=== PATIENT | female | born 1950 | race Caucasian/White ===

== ENCOUNTER 2022-06-29 09:54 | Outpatient (CLI) | payer MEDICARE, SELFPAY ==
--- NOTE | ~2022-06-29 | MM_ITS ---
EXAMINATION: MM screening harman BI w dima HISTORY: Screening mammogram TECHNIQUE: Craniocaudal and mediolateral oblique 3-D tomosynthesis images were obtained and synthetic 2-D images were generated. CAD analysis was submitted and interpreted. COMPARISON: No prior mammogram is available for comparison at this institution. BREAST PARENCHYMAL COMPOSITION: There are scattered areas of fibroglandular density. FINDINGS: There is no evidence of suspicious mass, calcification, or architectural distortion to sugg est malignancy in either breast. There has been no suspicious interval change. IMPRESSION: 1. No mammographic evidence of malignancy. 2. Recommend routine screening mammography in one year. BI-RADS Category 1: Negative Reviewed, dictated and finalized at location A. [facility]
== END 2022-06-29 09:55 | disposition home or self-care (01) ==
LOC: ANHIMG 09:56
PROVIDERS: PCP Family Medicine; Visit Provider Family Medicine
DX: Z12.31 Encounter for screening mammogram for malignant neoplasm of breast (principal)
CPT/HCPCS: 77063; 77067

== ENCOUNTER 2022-09-15 08:27 | Outpatient (CLI) | payer MEDICARE, SELFPAY ==
--- NOTE | ~2022-09-15 | US_ITS ---
Limited Abdominal Sonogram: Real-time sonographic imaging of the right upper quadrant was performed. Clinical History: Gallbladder disease Findings: The liver appears echogenic, with no evidence of mass lesion or bile duct dilatation. Main portal vein demonstrates normal direction of flow. The gallbladder is well distended, and appears no rmal with no evidence of gallstone or wall thickening. The common bile duct measures 3 mm. The visua lized pancreas, aorta, and IVC are unremarkable. Impression: Diffuse fatty infiltration of the liver. Reviewed, dictated and finalized at location M. Impression: Diffuse fatty infiltration of the liver.
== END 2022-09-15 08:28 | disposition home or self-care (01) ==
LOC: ANHIMG 08:29
PROVIDERS: PCP Family Medicine; Visit Provider Family Medicine
DX: K82.9 Disease of gallbladder, unspecified (principal); R10.11 Right upper quadrant pain; K76.0 Fatty (change of) liver, not elsewhere classified
CPT/HCPCS: 76705

== ENCOUNTER 2022-11-02 07:51 | Outpatient (CLI) | payer MEDICARE, SELFPAY ==
--- NOTE | ~2022-11-02 | DEXA_ITS ---
Bone Density Report Name: DANIAL FLOREZ Age: 72 Sex: Female Ethnicity: White Date of : 1950 Indication: postmenopausal; screening for osteoporosis; Referring Provider: CORETTA BROWNING Study: Bone densitometry was performed. Exam Date: November 02, 2022 Accession number: [id number] Bone Density: Region BMD T-score Z-score Classification AP Spine(L1-L4) 0.869 -1.6 0.5 Osteopenia Femoral Neck (Left) 0.583 -2.4 -0.6 Osteopenia Total Hip (Left) 0.717 -1.8 -0.3 Osteopenia Femoral Neck (Right) 0.585 -2.4 -0.5 Osteopenia Total Hip (Right) 0.735 -1.7 -0.2 Osteopenia Total Hip Mean 0.726 -1.8 -0.3 Osteopenia World Health Organization criteria for BMD impression classify patients as: Normal (T-score at or above -1.0), Osteopenia (T-score between -1.0 and -2.5), or Osteoporosis (T-score at or below -2.5). 10-year Fracture Risk(1): Major Osteoporotic Fracture 14% Hip Fracture 3.2% Reported Risk Factors: [place] (), Neck BMD=0.583, BMI=29.2 (1) FRAX(R) Version 3.08. Fracture probability calculated for an untreated patient. Fracture probability may be lower if the patient has received treatment. Clinical Information Provided by Patient: Has used the following medications: Vitamin D Patient maximum height was 66 Menopause Age: 52 No regular weight bearing exercise Drinks caffeinated beverages Onset of menses at age 15 Number of children 2 Impression: The patient has low bone mass, based on the Left Femoral Neck T-score. The patient has an estimated ten-year risk of hip fracture of 3.2% and an estimated ten-year risk of major fracture of 14%, based on the WHO FRAX algorithm. Discussion: BONE DENSITY IS LOW AT ONE OR MORE SKELETAL SITES. THE PATIENT'S BMD AND CLINICAL RISK FACTORS CONTRIBUTE TO THIS PATIENT'S INCREASED RISK OF FRACTURE. This patient's lowest T-score is low at one or more skeletal sites. It meets the World Health Organization's (WHO) criteria for ?low bone mass? (T-score between -1.0 and -2.5). The patient's 10-year risk of hip fracture as calculated by FRAX exceeds the threshold where pharmacological therapy is recommended by the National Osteoporosis Foundation (NOF). However, all treatment decisions require clinical judgment and consideration of individual patient factors, including patient preferences, comorbidities, previous drug use, risk factors not captured in the FRAX model (e.g., frailty, falls, vitamin D deficiency, increased bone turnover, interval significant decline in bone density) and possible under or overestimation of fracture risk by FRAX. The patient should follow a healthful lifestyle (good nutrition with adequate calcium and vitamin D, and appropriate weight-bearing exercise). Follow-Up: Consider a repeat BMD and Vertebral Fracture Assessm
--- NOTE | ~2022-11-02 | DEXA_ITS ---
Bone Density Report Name: DANILA FLOREZ Age: 72 Sex: Female Ethnicity: White Date of : 1950 Indication: postmenopausal; screening for osteoporosis; Referring Provider: CORETTA BROWNING Study: Bone densitometry was performed. Exam Date: November 02, 2022 Accession number: [id number] Bone Density: Region BMD T-score Z-score Classification Total Forearm (Left) 0.386 -3.6 -1.5 1/3 Forearm (Left) 0.506 -3.1 -1.0 UD Forearm (Left) 0.288 -2.7 -1.1 World Health Organization criteria for BMD impression classify patients as: Normal (T-score at or above -1.0), Osteopenia (T-score between -1.0 and -2.5), or Osteoporosis (T-score at or below -2.5). Clinical Information Provided by Patient: Has used the following medications: Vitamin D Patient maximum height was 66 Menopause Age: 52 No regular weight bearing exercise Drinks caffeinated beverages Onset of menses at age 15 Number of children 2 Impression: The patient has osteoporosis, based on the Left Third Radius T-score. Discussion: INCREASED RISK OF FRACTURE. BONE DENSITY IS UNDESIRABLY LOW AT ONE OR MORE SKELETAL SITES, CONSISTENT WITH POSTMENOPAUSAL OSTEOPOROSIS. This patient's lowest T-score meets the World Health Organization's (WHO) criteria for osteoporosis at one or more sites (T-score -2.5 or below). In untreated patients, the risk of osteoporotic fracture increases approximately two-fold for each 1.0 SD decrease in T-score. Low bone density is not the only risk factor for fracture; also consider factors such as patient's age, frailty or poor health, risk of falling, risk of injury, previous osteoporotic fracture, family history of osteoporosis, cigarette smoking, low body weight, etc. Not everyone with low bone mineral density has osteoporosis; osteomalacia and other metabolic bone disorders should also be considered. Patients who have osteoporosis should be evaluated for specific diseases and conditions (secondary causes) that may cause or contribute to bone loss. The [place] Association of Clinical Endocrinologists (AACE) and National Osteoporosis Foundation (NOF) recommend pharmacologic intervention for all postmenopausal women whose T-score is in this range. The patient should follow a healthful lifestyle (good nutrition with adequate calcium and vitamin D, and appropriate weight-bearing exercise). Follow-Up: Consider a repeat BMD and Vertebral Fracture Assessment (VFA) exam in 2 years or sooner if medically necessary, to reassess this patient's status. Reported by: [facility] on 11/02/2022 8:22:00 AM. Reviewed, dictated and finalized at location A. [facility]
== END 2022-11-02 07:52 | disposition home or self-care (01) ==
LOC: ANHIMG 07:52
PROVIDERS: PCP Family Medicine; Visit Provider Internal Medicine
DX: M81.0 Age-related osteoporosis without current pathological fracture (principal); M85.88 Other specified disorders of bone density and structure, other site; M85.852 Other specified disorders of bone density and structure, left thigh; M85.851 Other specified disorders of bone density and structure, right thigh
CPT/HCPCS: 36415; 77080; 77081; 80053; 82784; 83883; 84155; 84165; 85025

== ENCOUNTER 2022-11-02 10:50 | Outpatient (CLI) | payer MEDICARE, SELFPAY ==
[2022-11-02 11:04] LABS: Basophils Percent Auto 0.4 % (0.2-1.2); Eosinophils Absolute Auto 0.1 K/mm3 (0-0.3); Eosinophils Percent Auto 1.8 % (0-4.4); Hemoglobin 15.2 g/dL (12.0-15.0); Immature Granulocyte Absolute 0.02 K/mm3 (0.00-0.031); Immature Granulocyte Percent A 0.3 % (0-0.5); Lymphocytes Percent Auto 34.6 % (18.3-44.2); Mean Corpuscular Hemoglobin 30.6 pg (26-34); Mean Corpuscular Volume 92.7 fl (80-100); Mean Platelet Volume 10.3 fl (7.4-10.4); Monocytes Absolute Auto 0.8 K/mm3 (0.1-0.6); Monocytes Percent Auto 10.7 % (2.6-8.5); Neutrophils Absolute Auto 3.8 K/mm3 (1.3-6.7); Neutrophils Percent Auto 52.2 % (45.5-73.1); Platelet Count Result 239 k/mm3 (150-375); Red Blood Count 4.96 M/mm3 (4.2-5.4); Red Cell Distribution Width 13.1 % (11.5-14.5); White Blood Count 7.2 K/mm3 (4.5-10.0)
[2022-11-02 16:42] LABS: Alanine Aminotransferase 39 U/L (6-35); Albumin Level 4.9 g/dL (3.5-5.1); Alkaline Phosphatase 72 U/L (38-126); Anion Gap 6 mmol/L (8-16); Aspartate Amino Transferase 32 U/L (14-36); Bilirubin,Total 0.5 mg/dL (0.2-1.3); Blood Urea Nitrogen 14 mg/dL (7-17); Calcium 9.9 mg/dL (8.4-10.2); Carbon Dioxide 30 mmol/L (22-30); Chloride 105 mmol/L (98-107); Estimated Glomerular Filt Rate > 60; Glucose 120 mg/dL (65-110); Potassium 4.1 mmol/L (3.4-5.0); Sodium 141 mmol/L (137-145)
[2022-11-02 16:49] LABS: Immunoglobulin A 271 mg/dL (70-400); Immunoglobulin G 934 mg/dL (700-1600); Immunoglobulin M 75 mg/dL (40-230)
[2022-11-06 11:26] LABS: Kappa\\Lambda Light Chains 1.69 (0.26-1.65); Lambda Light Chain 17.9 mg/L (5.7-26.3)
[2022-11-06 16:36] LABS: Abnormal Protein Band 1 0.3 g/dL; Albumin 4.3 g/dL (3.8-4.8); Alpha 1 Globulin 0.3 g/dL (0.2-0.3); Alpha 2 Globulin 0.9 g/dL (0.5-0.9); Beta 1 Globulin 0.6 g/dL (0.4-0.6); Gamma Globulin 1.1 g/dL (0.8-1.7); Protein, Total 7.5 g/dL (6.1-8.1)
== END 2022-11-02 10:51 | disposition home or self-care (01) ==
LOC: ANHLAB 10:52
PROVIDERS: PCP Family Medicine; Visit Provider Internal Medicine Hematology & Oncology
DX: D72.9 Disorder of white blood cells, unspecified (principal)
CPT/HCPCS: 36415; 80053; 82784; 83883; 84155; 84165; 85025

== ENCOUNTER 2023-04-26 08:21 | Outpatient (CLI) | payer MEDICARE, SELFPAY ==
--- NOTE | ~2023-04-26 | NM_ITS ---
EXAMINATION: NM parathyroid imaging w spect DATE: 04/26/2023 12:30 INDICATION: High urine calcium TECHNIQUE: 20.9 mCi Tc99m tetrofosmin (Myoview) was administered by intravenous route. Anterior image s of the neck were obtained at 10 minutes and 3 hours. 3 hour delayed SPECT images were also obtained and reconstructed in axial, sagittal and coronal planes. COMPARISON: None. FINDINGS/IMPRESSION: There is no focus of persistent activity in the area of the thyroid or mediastinum to suggest parathy roid adenoma. Reviewed, dictated and finalized at location A.
== END 2023-04-26 08:22 | disposition home or self-care (01) ==
LOC: ANHIMG 08:23
PROVIDERS: PCP Family Medicine; Visit Provider Internal Medicine
DX: E21.3 Hyperparathyroidism, unspecified (principal)
CPT/HCPCS: 78071; A9500

== ENCOUNTER 2023-05-18 11:18 | Outpatient (CLI) | payer MEDICARE, SELFPAY ==
[2023-05-18 11:48] LABS: Basophils Percent Auto 0.3 % (0.2-1.2); Eosinophils Absolute Auto 0.1 K/mm3 (0-0.3); Eosinophils Percent Auto 1.3 % (0-4.4); Hematocrit 42.9 % (37.0-47.0); Hemoglobin 14.1 g/dL (12.0-15.0); Immature Granulocyte Absolute 0.02 K/mm3 (0.00-0.031); Immature Granulocyte Percent A 0.3 % (0-0.5); Lymphocytes Percent Auto 37.5 % (18.3-44.2); Mean Corpuscular HGB Conc 32.9 g/dl (32-36); Mean Corpuscular Hemoglobin 30.7 pg (26-34); Mean Corpuscular Volume 93.5 fl (80-100); Mean Platelet Volume 9.5 fl (7.4-10.4); Monocytes Absolute Auto 0.8 K/mm3 (0.1-0.6); Monocytes Percent Auto 9.7 % (2.6-8.5); Neutrophils Absolute Auto 3.9 K/mm3 (1.3-6.7); Neutrophils Percent Auto 50.9 % (45.5-73.1); Platelet Count Result 210 k/mm3 (150-375); Red Blood Count 4.59 M/mm3 (4.2-5.4); Red Cell Distribution Width 13.8 % (11.5-14.5); White Blood Count 7.7 K/mm3 (4.5-10.0)
[2023-05-18 11:57] LABS: Blood Urea Nitrogen 20 mg/dL (8-26); Carbon Dioxide 29 mmol/L (22-30); Chloride 101 mmol/L (98-109); Estimated Glomerular Filt Rate > 60; Glucose 99 mg/dL (70-105); Ionized Calcium (POC) 1.21 mmol/L (1.11-1.31); Potassium 4.1 mmol/L (3.5-4.9); Sodium 140 mmol/L (138-146)
[2023-05-18 12:28] LABS: Alanine Aminotransferase 29 U/L (6-35); Albumin Level 4.4 g/dL (3.5-5.1); Alkaline Phosphatase 42 U/L (38-126); Anion Gap 9 mmol/L (8-16); Aspartate Amino Transferase 30 U/L (14-36); Bilirubin,Total 0.6 mg/dL (0.2-1.3); Blood Urea Nitrogen 19 mg/dL (7-17); Calcium 9.6 mg/dL (8.4-10.2); Carbon Dioxide 28 mmol/L (22-30); Chloride 102 mmol/L (98-107); Estimated Glomerular Filt Rate > 60; Glucose 100 mg/dL (65-110); Potassium 4.2 mmol/L (3.4-5.0); Sodium 139 mmol/L (137-145)
== END 2023-05-18 11:19 | disposition home or self-care (01) ==
LOC: ANHLAB 11:22
PROVIDERS: PCP Family Medicine; Visit Provider Internal Medicine Hematology & Oncology
DX: D72.9 Disorder of white blood cells, unspecified (principal)
CPT/HCPCS: 36415; 80047; 80053; 85025

== ENCOUNTER 2023-11-06 09:28 | Outpatient (CLI) | payer MEDICARE, SELFPAY ==
[2023-11-06 10:03] LABS: Basophils Percent Auto 0.3 % (0.2-1.2); Eosinophils Absolute Auto 0.2 K/mm3 (0-0.3); Hematocrit 44.8 % (37.0-47.0); Hemoglobin 14.6 g/dL (12.0-15.0); Lymphocytes Absolute Auto 2.71 K/mm3 (0.9-3.2); Lymphocytes Percent Auto 45.7 % (18.3-44.2); Mean Corpuscular HGB Conc 32.6 g/dl (32-36); Mean Corpuscular Hemoglobin 30.9 pg (26-34); Mean Corpuscular Volume 94.9 fl (80-100); Mean Platelet Volume 10.2 fl (7.4-10.4); Monocytes Absolute Auto 0.6 K/mm3 (0.1-0.6); Monocytes Percent Auto 9.6 % (2.6-8.5); Neutrophils Absolute Auto 2.5 K/mm3 (1.3-6.7); Neutrophils Percent Auto 41.4 % (45.5-73.1); Platelet Count Result 222 k/mm3 (150-375); Red Blood Count 4.72 M/mm3 (4.2-5.4); Red Cell Distribution Width 13.2 % (11.5-14.5); White Blood Count 5.9 K/mm3 (4.5-10.0)
[2023-11-06 10:42] LABS: Alanine Aminotransferase 25 U/L (6-35); Albumin Level 4.7 g/dL (3.5-5.1); Alkaline Phosphatase 48 U/L (38-126); Anion Gap 8 mmol/L (4-12); Aspartate Amino Transferase 25 U/L (14-36); Bilirubin,Total 0.6 mg/dL (0.2-1.3); Blood Urea Nitrogen 17 mg/dL (7-17); Calcium 10.3 mg/dL (8.4-10.2); Carbon Dioxide 27 mmol/L (22-30); Chloride 105 mmol/L (98-107); Estimated Glomerular Filt Rate > 60; Glucose 113 mg/dL (65-110); Potassium 4.2 mmol/L (3.4-5.0); Sodium 140 mmol/L (137-145)
[2023-11-06 11:08] LABS: Immunoglobulin A 267 mg/dL (70-400); Immunoglobulin G 874 mg/dL (700-1600); Immunoglobulin M 64 mg/dL (40-230)
[2023-11-06 11:11] LABS: Thyroid Stimulating Hormone 0.046 uIU/mL (0.465-4.680)
[2023-11-06 12:32] LABS: Free T4 Free Thyroxine 1.64 ng/mL (0.78-2.19)
[2023-11-07 14:28] LABS: Lambda Light Chain 16.7 mg/L (5.7-26.3)
[2023-11-07 15:14] LABS: Abnormal Protein Band 1 0.4 g/dL (NONE DETECTED); Albumin 4.2 g/dL (3.8-4.8); Alpha 1 Globulin 0.3 g/dL (0.2-0.3); Alpha 2 Globulin 0.7 g/dL (0.5-0.9); Beta 1 Globulin 0.5 g/dL (0.4-0.6); Gamma Globulin 0.9 g/dL (0.8-1.7)
== END 2023-11-06 09:29 | disposition home or self-care (01) ==
LOC: ANHLAB 09:32
PROVIDERS: Internal Medicine; Nurse Practitioner Family; PCP Family Medicine; Visit Provider Internal Medicine Hematology & Oncology
DX: E03.9 Hypothyroidism, unspecified (principal); E11.9 Type 2 diabetes mellitus without complications; R77.8 Other specified abnormalities of plasma proteins; R82.994 Hypercalciuria; M81.0 Age-related osteoporosis without current pathological fracture; Z71.3 Dietary counseling and surveillance; E21.3 Hyperparathyroidism, unspecified; Z13.820 Encounter for screening for osteoporosis
CPT/HCPCS: 36415; 80053; 82784; 83883; 84155; 84165; 84439; 84443; 85025

== ENCOUNTER 2023-12-25 08:51 | Outpatient (CLI) | payer MEDICARE, SELFPAY ==
[2023-12-25 09:06] LABS: Basophils Percent Auto 0.3 % (0.2-1.2); Eosinophils Absolute Auto 0.2 K/mm3 (0-0.3); Eosinophils Percent Auto 2.5 % (0-4.4); Hematocrit 43.8 % (37.0-47.0); Hemoglobin 14.5 g/dL (12.0-15.0); Immature Granulocyte Absolute 0.01 K/mm3 (0.00-0.031); Immature Granulocyte Percent A 0.2 % (0-0.5); Lymphocytes Absolute Auto 2.47 K/mm3 (0.9-3.2); Lymphocytes Percent Auto 41.9 % (18.3-44.2); Mean Corpuscular HGB Conc 33.1 g/dl (32-36); Mean Corpuscular Hemoglobin 30.9 pg (26-34); Mean Corpuscular Volume 93.2 fl (80-100); Mean Platelet Volume 9.8 fl (7.4-10.4); Monocytes Absolute Auto 0.7 K/mm3 (0.1-0.6); Neutrophils Absolute Auto 2.5 K/mm3 (1.3-6.7); Neutrophils Percent Auto 43.1 % (45.5-73.1); Platelet Count Result 208 k/mm3 (150-375); Red Cell Distribution Width 13.2 % (11.5-14.5); White Blood Count 5.9 K/mm3 (4.5-10.0)
[2023-12-25 09:29] LABS: Alanine Aminotransferase 25 U/L (6-35); Albumin Level 4.4 g/dL (3.5-5.1); Alkaline Phosphatase 41 U/L (38-126); Anion Gap 8 mmol/L (4-12); Aspartate Amino Transferase 26 U/L (14-36); Bilirubin,Total 0.5 mg/dL (0.2-1.3); Blood Urea Nitrogen 15 mg/dL (7-17); Calcium 9.1 mg/dL (8.4-10.2); Carbon Dioxide 27 mmol/L (22-30); Chloride 107 mmol/L (98-107); Estimated Glomerular Filt Rate > 60; Glucose 122 mg/dL (65-110); Potassium 4.2 mmol/L (3.4-5.0); Sodium 142 mmol/L (137-145)
[2023-12-25 09:38] LABS: Immunoglobulin A 231 mg/dL (70-400); Immunoglobulin G 857 mg/dL (700-1600); Immunoglobulin M 55 mg/dL (40-230)
[2023-12-26 11:03] LABS: Protein, Total 6.8 g/dL (6.1-8.1)
[2023-12-27 08:48] LABS: Abnormal Protein Band 1 0.4 g/dL (NONE DETECTED); Albumin 4.1 g/dL (3.8-4.8); Alpha 1 Globulin 0.2 g/dL (0.2-0.3); Alpha 2 Globulin 0.7 g/dL (0.5-0.9); Beta 1 Globulin 0.5 g/dL (0.4-0.6); Gamma Globulin 0.9 g/dL (0.8-1.7)
[2023-12-27 14:53] LABS: Kappa\\Lambda Light Chains 1.93 (0.26-1.65); Lambda Light Chain 15.5 mg/L (5.7-26.3)
== END 2023-12-25 08:52 | disposition home or self-care (01) ==
PROVIDERS: PCP Family Medicine; Visit Provider Internal Medicine Hematology & Oncology
DX: D47.2 Monoclonal gammopathy (principal)
CPT/HCPCS: 36415; 80053; 82784; 83883; 84155; 84165; 85025

== ENCOUNTER 2024-10-07 13:50 | Outpatient (CLI) | payer MEDICARE, SELFPAY ==
[2024-10-07 14:02] LABS: Basophils Percent Auto 0.1 % (0.2-1.2); Eosinophils Absolute Auto 0.1 K/mm3 (0-0.3); Eosinophils Percent Auto 1.6 % (0-4.4); Hematocrit 45.7 % (37.0-47.0); Immature Granulocyte Absolute 0.01 K/mm3 (0.00-0.031); Immature Granulocyte Percent A 0.1 % (0-0.5); Lymphocytes Absolute Auto 3.15 K/mm3 (0.9-3.2); Lymphocytes Percent Auto 38.5 % (18.3-44.2); Mean Corpuscular HGB Conc 32.8 g/dl (32-36); Mean Corpuscular Hemoglobin 30.7 pg (26-34); Mean Corpuscular Volume 93.6 fl (80-100); Mean Platelet Volume 9.9 fl (7.4-10.4); Monocytes Absolute Auto 0.8 K/mm3 (0.1-0.6); Monocytes Percent Auto 9.9 % (2.6-8.5); Neutrophils Absolute Auto 4.1 K/mm3 (1.3-6.7); Neutrophils Percent Auto 49.8 % (45.5-73.1); Platelet Count Result 243 k/mm3 (150-375); Red Blood Count 4.88 M/mm3 (4.2-5.4); Red Cell Distribution Width 13.1 % (11.5-14.5); White Blood Count 8.2 K/mm3 (4.5-10.0)
[2024-10-07 14:05] LABS: Blood Urea Nitrogen 18 mg/dL (8-26); Carbon Dioxide 26 mmol/L (22-30); Chloride 103 mmol/L (98-109); Estimated Glomerular Filt Rate > 60; Glucose 92 mg/dL (70-105); Ionized Calcium (POC) 1.16 mmol/L (1.11-1.31); Sodium 140 mmol/L (138-146)
--- OUTSIDE RECORDS SUMMARY | 2024-10-07 15:52 | XMS_ITS | Clinical Summary ---
Author Organization [facility] Gwendolyn Blancas Address [address] [place] [address] Care Team Providers Care Lead Rider Name Role Phone Filemon Cloud MD Primary Care Provider [phone] Allergies No known active allergies Medications semaglutide (Ozempic) 0.25 mg or 0.5 mg (2 mg/3 mL) Pen Injector Inject 0.5 mg by subcutaneous injection every 7 days. Monday Active amLODIPine (NORVASC) 5 mg tablet Take 5 mg by mouth daily. Active lisinopriL (PRINIVIL) 20 mg tablet Take 20 mg by mouth daily. Active FENOFIBRATE ORAL Take 54 mg by mouth daily. Active rosuvastatin (CRESTOR) 10 mg tablet Take 10 mg by mouth daily. Active empagliflozin (Jardiance) 25 mg tablet Take by mouth daily in the morning. Active levothyroxine 125 mcg tablet Take 125 mcg by mouth daily in the morning. Active metFORMIN (GLUCOPHAGE XR) 500 mg Extended Release 24 hour tablet Take 500 mg by mouth 2 times daily with meals. Active aspirin (AARON CHEWABLE) 81 mg Tablet, Chewable Take 81 mg by mouth daily. Active cyanocobalamin 1,000 mcg Tablet Take 1,000 mcg by mouth daily. Active multivitamins-m inerals-lutein (Centrum Silver) Tablet Take 1 Tablet by mouth daily. Active Cholecalciferol , Vitamin D3, 50 mcg (2,000 unit) Capsule Take by mouth. A ctive glucosamine/cho ndr keller A sod (OSTEO BI-FLEX ORAL) Take by mouth. Activ e alendronate (FOSAMAX) 70 mg tablet Take 70 mg by mouth every 7 days. empty stomach before other meds,with 8oz of water, stay upright 30 min Active Active Problems No known active problems Encounters Date Type Department Care Team Description 10/07/2024 2:45 PM CDT Office Visit [facility] Oncology and Hematology [facility] [address] [place] [address] Keenan Douglass MD MGUS (monoclonal gammopathy of unknown significance) (Primary Dx) 09/18/2024 External Device Data STL ABSTRACTION Provider, Abstract 09/07/2024 External Device Data STL ABSTRACTION Provider, Abstract 09/06/2024 External Device Data STL ABSTRACTION Provider, Abstract 09/04/2024 External Device Data STL ABSTRACTION Provider, Abstract 08/21/2024 External Device Data STL ABSTRACTION Provider, Abstract 07/25/2024 External Device Data STL ABSTRACTION Provider, Abstract from Last 3 Months Family History Medical History Relation Name Comments Kidney Disease Daughter Diabetes Mother Heart Disease Mother Uterine Cancer Mother Relation Name Status Comments Daughter Alive Father Mother Sister 1 Sister 2 Sister 3 Alive Son Alive Social History Tobacco Use Types Packs/Day Years Used Date Smoking Tobacco: Never Smokeless Tobacco: Never Tobacco Cessation:Counseling Given: Not Answered Alcohol Use Standard Drinks/Week Comments Never 0 (1 standard drink = 0.6 oz pur e alcohol) Comments Unknown Sex and Gender Information Value Date Recorded Sex Assigned at Not on file Legal Sex Female 2:04 PM CDT Gender Identity Not on file Sexual Orientation Not on file Last Filed Vital Signs Vital Sign Reading Time Taken Comments Blood Pressure 124/80 10/07/2024 2:22 PM CDT Pulse 83 10/07/2024 2:22 PM CDT Temperature 36.3 C (97.4 F) 10/07/2024 2:22 PM CDT Respiratory Rate 16 10/07/2024 2:22 PM CDT Oxygen Saturation 94% 10/07/2024 2:22 PM CDT Inhaled Oxygen Concentration - - Weight 84.7 kg (186 lb 12.8 oz) 10/07/2024 2:22 PM CDT Height 167.6 cm (5' 6 ) 11/02/2022 9:28 AM CDT Body Mass Index 30.15 11/02/2022 9:28 AM CDT Plan of Treatment Upcoming Encounters Date Type Department Care Team (Late st Contact Info) Description 10/07/2025 10:15 AM CDT Office Visit [facility] Oncology and Hematology - Juan Carlos [address] [facility] [address] [place] [address] Keenan Douglass MD [address] [facility] [address] [place] [address] Health Maintenance Due Date Last Done Comments DTAP/TDAP/TD VACCINES (1 - Tdap) 01/28/1971 Traditional Medicare (ACO) A nnual Wellness Visit 01/28/1971 COLORECTAL SCREENING 01/28/1997 Colorectal Cancer Screening 01/28/1997 FIT-DNA Q 3 years 01/28/1997 FIT/FOBT Q 1 year 01/28/1997 Flex Sig/CT Colonography Q 5 years 01/28/1997 PNEUMOCOCCAL VACCINE 50+ YEA RS (1 of 1 - PCV) 01/28/2002 ZOSTER VACCINE (1 of 2) 01/28/2002 RSV VACCINE (60+ or ) (1 - Risk 60-74 years 1-dose series) 2012 OSTEOPOROSIS SCREENING 01/28/2017 BREAST CANCER SCREENING 06/29/2023 06/29/20, 06/29/2022, 03/22/2021, Additional history exists INFLUENZA VACCINE (#1) 2024 Procedures Procedure Name Priority Date/Time Associated Diagnosis Comments IMMUNOFIXATION Routine 10/01/2024 8:35 AM CDT PROTEIN ELECTROPHORESIS W/REFLEX,SERUM Routine 10/01/2024 8:35 AM CDT MGUS (monoclonal gammopathy of unknown significance) KAPPA/LAMBDA LIGHT CHAINS Routine 10/01/2024 8:35 AM CDT MGUS (monoclonal gammopathy of unknown significance) IMMUNOGLOBULINS IGG IGA IGM Routine 10/01/2024 8:35 AM CDT MGUS (monoclonal gammopathy of unknown significance) from Last 3 Months Results * IMMUNOFIXATION (10/01/2024 8:35 AM CDT) IMMUNOFIXATION INTERP [facility] Comment: IgG kappa monoclonal band present. Test Performed at: [facility] [address] [id number] Nina Romeo MD 10/01/2024 8:35 AM CDT 10/01/2024 8:35 AM CDT Keenan Douglass MD CHEMISTRY ORDERABLES Final Resu lt Performing Organization Address City/[facility] Co de Phone Number [facility] [phone] [facility] [address] [phone] * (ABNORMAL) KAPPA/LAMBDA, FREE LIGHT CHAINS (10/01/2024 8:35 AM CDT) Pathologist [facility] KAPPA FREE LIGHT CHAIN 27.4(H) 3.3 - 19.4 mg/L [facility] LAMBDA FREE LIGHT CHAIN 16.1 5.7 - 26.3 mg/L [facility] KAPPA/LAMBDA LIGHT CHAIN RATIO 1.70(H) 0.26 - 1.65 [facility] Comment: Free kappa/lambda ratio in serum of normal individuals is 0.26-1.65. Excess production of free kappa or lambda chains can alter this ratio. Monoclonal free light chains are found in serum of patients with multiple myeloma, Waldenstrom's macroglobulinemia, mu-heavy chain disease, primary amyloidosis, light chain deposition disease, monoclonal gammopathy of undetermined significance, and lymphoproliferative disorders. Measurement of free light chain concentration in serum is useful for diagnosis, prognosis, monitoring disease activity and following response to therapy of these disorders. Test Performed at: [facility] [address] [place] [address] Nina Romeo MD Blood 10/01/2024 8:35 AM CDT 10/01/2024 8:35 AM CDT Keenan Douglass MD CHEMISTRY ORDERABLES Final Resu lt [facility] [phone] [facility] [address] [place] [address] * IMMUNOGLOBULINS IGG IGA IGM (10/01/2024 8:35 AM CDT) Pathologist [facility] IGA 228 70 - 320 mg/dL [facility] IGG 910 600 - 1540 mg/dL [facility] IGM 58 50 - 300 mg/dL [facility] Comment: Test Performed at: [facility] [address] [place] [address] Nina Romeo MD Blood 10/01/2024 8:35 AM CDT 10/01/2024 8:35 AM CDT Keenan Douglass MD CHEMISTRY ORDERABLES Final Resu lt Performing Organization Address [facility] Co de Phone Number [facility] [phone] [facility] [address] [place] [phone] * (ABNORMAL) PROTEIN ELECTROPHORESIS W/REFLEX,SERUM (10/01/2024 8:35 AM CDT) Pathologist [facility] TOTAL PROTEIN 6.8 6.1 - 8.1 g/dL [facility] ALBUMIN SPE 4.2 3.8 - 4.8 g/dL [facility] ALPHA 1 GLOBULIN SPE 0.2 0.2 - 0.3 g/dL [facility] ALPHA 2 GLOBULIN SPE 0.7 0.5 - 0.9 g/dL [facility] Beta 1 Globulin 0.5 0.4 - 0.6 g/dL [facility] Beta 2 Globulin 0.3 0.2 - 0.5 g/dL [facility] GAMMA GLOBULIN 0.9 0.8 - 1.7 g/dL [facility] ABNORMAL PROTEIN BAND SPE 0.4(H) NONE DETECTED g/dL [facility] SPE INTERP [facility] Comment: Faint restricted band (M-spike) migrating in the gamma region. Consider serum immunofixation to rule out a monoclonal protein if clinically indicated. Test Performed at: [facility] [id number] [address] Nina Romeo MD Blood 10/01/2024 8:35 AM CDT 10/01/2024 8:35 AM CDT Keenan Douglass MD CHEMISTRY ORDERABLES Final Resu lt [facility] [phone] [facility] [address] [phone] from Last 3 Months Insurance MEDICARE PART A AND B BCBS SUPP Care Teams Lead Rider Relationship Specialty Start Date End Date Filemon Cloud MD [address] [place] [phone] PCP - General Family Practice 11/02/22
--- OUTSIDE RECORDS SUMMARY | 2024-10-07 15:52 | XMS_ITS | Encounter Summary ---
Author Organization [facility] YAZ Dudley [facility] Address [address] [place] [address] Care Team Providers Care Signs And Displays Salesperson Name Role Phone Filemon Cloud MD Primary Care Provider [phone] Reason for Visit * Reason Comments Follow Up Encounter Details Date Type Department Care Team ([facility] st Contact Info) Description 10/07/2024 2:45 PM CDT Office Visit [facility] Oncology and Hematology - [place] Carlos [address] [place] [address] [facility] [address] [place] [address] Keenan Douglass MD [address] [facility] [address] [place] [address] MGUS (monoclonal gammopathy of unknown significance) (Primary Dx) Social History Tobacco Use Types Packs/Day Years [...] on file Sexual Orientation Not on file documented as of this encounter Last Filed Vital Signs Vital Sign Reading Time Taken Comments Blood Pressure 124/80 10/07/2024 2:22 PM CDT Pulse 83 10/07/2024 2:22 PM CDT Temperature 36.3 C (97.4 F) 10/07/2024 2:22 PM CDT Respiratory Rate 16 10/07/2024 2:22 PM CDT Oxygen Saturation 94% 10/07/2024 2:22 PM CDT Inhaled Oxygen Concentration - - Weight 84.7 kg (186 lb 12.8 oz) 10/07/2024 2:22 PM CDT Height - - Body Mass Index 30.15 11/02/2022 9:28 AM CDT documented in this encounter Progress Notes * Keenan Douglass MD - 10/07/2024 2:22 PM CDT HEMATOLOGY / ONCOLOGY PROGRESS NOTE Patient Identification: Name: Dee Viczaino Age: 74 y.o. Sex: female : 1950 DIAGNOSIS MGUS CURRENT TREATMENT Surveillance TREATMENT HISTORY SUBJECTIVE Patient came to the office for follow-up visit. She denies any bone pain. Mild neuropathy. She has gained 9 pound weight. Denies any other new complaint. Review of system Constitutional: Patient did not mention fevers, sweats, 9 pound weight gain without any tiredness and fatigue HEENT: Patient did not mention sinus congestion, hearing or vision problems Respiratory: Patient did not mention cough, dyspnea, wheeze Cardiovascular: Patient did not mention chest pain, exertional chest pressure/discomfort, nausea, syncope, shortness of breath GI: Patient did not mention constipation, diarrhea, dsyphagia, reflux symptoms, vomiting, melena : Patient did not mention dysuria, frequency, incontinence, urgency Integumentary system: no lymphadenopathy, sweats, flushing Musculoskeletal: Patient not mention: myalgia, arthralgia Neurological: Patient did not mention blurry or disturbed vision, numbness/weakness, dizziness Skin: No lumps, bumps or rashes. 12 point review of system was reviewed Objective: Vital signs in last 24 hours: As per nursing note Exam: General appearance: alert, cooperative, no distress, appears stated age Head: normocephalic, without obvious abnormality, atraumatic Eyes: conjunctivae/corneas clear, EOM's intact Ears: normal external ear canals AU Nose: Nares normal. Septum midline. Mucosa normal. No drainage or sinus tenderness Throat: Lips, mucosa, and tongue normal. Teeth and gums normal Neck: supple, symmetrical, trachea midline. Lungs: clear to auscultation bilaterally Heart: regular rate and rhythm, S1, S2 normal, no murmur, click, rub or gallop Abdomen: soft, non-tender. Bowel sounds normal. No masses, No organomegaly Extremities: extremities normal, atraumatic, no cyanosis or edema Skin: Skin color, texture, turgor normal. No rashes or lesions Lymph nodes: No lymphadenopathy Neuro: No obvious focal deficit Exam as above PATH LABS Labs from November 02 showed normal immunoglobulin levels creatinine 0.7 calcium 9.9 kappa light chain 30.3 lambda light chain 17.9 ratio 1.69 serum protein electrophoresis showed M spike of 0.3 g/dL WBC 7.2 hemoglobin 15.2 platelet 239,000 Labs from November 05 showed M spike of 0.4 g/dL immunoglobulin levels are normal [place] light chain 38 lambda 16 ratio 1.8 creatinine 0.8 calcium 10.3 hemoglobin 14.6 Labs from October 07 showed creatinine 0.9 hemoglobin 15 serum protein electrophoresis showed M spike of 0.4 g. Immunofixation showed IgG kappa monoclonal band present. [place] free light chain 27.4 ratio1.7 normal immunoglobulin level. Assessment: Plan: There are no active problems to display for this patient. MGUS. Patient is asymptomatic without any bone pain. Labs showed serum protein electrophoresis withIgG kappa monoclonal band with M spike of 0.4 g. She is stable. Kidney function and hemoglobin is stable. No need for further testing at this time. I will see her back in 1 year. Hypercalcemia. Resolved. This was secondary to calcium supplement. Type 2 diabetes. Stable on Ozempic and Jardiance. I recommended regular exercise and weight loss. Hypertension. Stable on lisinopril and amlodipine. Follow-up in 1 year. 10/07/2024 Keenan Douglass MD documented in this encounter Plan of Treatment Upcoming Encounters Date Type Department Care Team (Late st Contact Info) Description 10/07/2025 10:15 AM CDT Office Visit [facility] Oncology and Hematology - [place] Carlos [address] [facility] [address] [place] [address] Keenan Douglass MD [address] [facility] [address] [place] [address] Scheduled Orders Name Type Priority Associated Diagnoses Orde r Schedule CBC WITH DIFFERENTIAL Lab Stat MGUS (monoclonal gammopathy of unknown significance) Expected: 10/07/2025, Expires: 10/07/2025 COMPREHENSIVE METABOLIC PANEL Lab Stat MGUS (monoclonal gammopathy of unknown significance) Expected: 10/07/2025, Expires: 10/07/2025 IMMUNOGLOBULINS IGG IGA IGM Lab Routine MGUS (monoclonal gammopathy of unknown significance) Expected: 10/07/2025, Expires: 10/07/2025 KAPPA/LAMBDA, FREE LIGHT CHAINS Lab Routine MGUS (monoclonal gammopathy of unknown significance) Expected: 10/07/2025, Expires: 10/07/2025 PROTEIN ELECTROPHORESIS W/REFLEX,SERUM Lab Routine MGUS (monoclonal gammopathy of unknown significance) Expected: 10/07/2025, Expires: 10/07/2025 documented as of this encounter Visit Diagnoses Diagnosis MGUS (monoclonal gammopathy of unknown significance)- Primary Monoclonal paraproteinemia documented in this encounter Care Teams Signs And Displays Salesperson Relationship Specialty Start Date End Date Filemon Cloud MD [address] [place] [phone] PCP - General Family Practice 11/02/22 documented as of this encounter
--- OUTSIDE RECORDS SUMMARY | 2024-10-07 15:52 | XMS_ITS | Clinical Summary ---
Author Organization [facility] Address [address] [place] [address] Care Team Providers Care Retirement Consultant Name Role Phone Greyson Martin MD Primary Care Provider [phone] Allergies No known active allergies Medications amLODIPine (NORVASC) 5 MG tablet Take 1 tablet (5 mg total) by mouth daily. Active aspirin 81 MG chewable tablet Chew 1 tablet (81 mg total) by mouth daily. Active Blood Glucose Monitoring Suppl (ONETOUCH VERIO FLEX SYSTEM) w/Device Kit see administration instructions. 4 Active vitamin B-12 (CYANOCOBALAMI N) (CYANOCOBALAMI N) 1000 mcg tablet Take 1 tablet (1,000 mcg total) by mouth daily. Active empagliflozin (JARDIANCE) 25 MG tablet Take by mouth daily. Active fenofibrate (TRICOR) 54 MG tablet 4 Active ONETOUCH VERIO test strip USE STRIP TO CHECK GLUCOSE TWICE DAILY 4 Active Lancets (ONETOUCH DELICA PLUS [id number]) Misc USE 1 TO CHECK GLUCOSE ONCE DAILY 4 Active levothyroxine (SYNTHROID) 125 MCG tablet Take 1 tablet (125 mcg total) by mouth daily. Active lisinopril (PRINIVIL) 20 MG tablet Take 1 tablet (20 mg total) by mouth daily. Active metFORMIN ER (GLUCOPHAGE-XR ) 500 MG 24 hr tablet Take 1 tablet (500 mg total) by mouth. Active rosuvastatin (CRESTOR) 10 MG tablet Take 1 tablet (10 mg total) by mouth daily. Active OZEMPIC, 0.25 OR 0.5 MG/DOSE, 2 MG/3ML injection (PEN) INJECT 0.5MG SUBCUTANEOUSLY ONCE A WEEK Active alendronate (FOSAMAX) 70 MG tablet Active Active Problems Problem Noted Date Diagnosed Date Closed fracture of lateral p ortion of left tibial plateau, initial encounter 07/11/2024 Encounters Date Type Department Care Team Description 10/02/2024 8:20 AM CDT [facility] [address] [place] [address] Maciel Millard, BOBO Fracture (Left Tibial Plateau Fracture 06/21/24) 10/02/2024 Travel 09/09/2024 Scan [facility] SRVCS Scanned, [facility] 09/04/2024 9:00 AM ESTABLISHMENT GUIDE Office Visit [facility] [address] [place] [address] Maciel Millard NP Fracture (Left Tibial Plateau Fracture ) 09/04/2024 Travel 08/16/2024 Scan [facility] HEALTH INFO SRVCS Scanned, [facility] 08/07/2024 9:20 AM ESTABLISHMENT GUIDE Office Visit [facility] [address] [place] [address] Maciel Millard, BOBO Fracture (Left Tibial Plateau Fracture) 08/07/2024 Scan [facility] HEALTH INFO SRVCS Scanned, [facility] 08/07/2024 Travel 07/25/2024 10:20 AM ESTABLISHMENT GUIDE [facility] [address] [place] [address] Maciel Millard, BOBO Fracture (Left Lateral Tibial Plateau Fracture 06/21/24) 07/25/2024 Travel 07/11/2024 3:40 PM ESTABLISHMENT GUIDE [facility] [address] [place] [address] Maciel Millard, BOBO Fracture (New patient: Left lateral tibial plateau fracture. Seen in the ED on 06/21/2024) 07/11/2024 2:25 PM ESTABLISHMENT GUIDE - 07/11/2024 11:59 PM ESTABLISHMENT GUIDE Hospital Encounter [facility] [address] [place] [address] Maciel Millard NP Discharge Disposition: Home or Self Care (Routine Discharge) 07/11/2024 Travel from Last 3 Months Family History Medical History Relation Comments Kidney Disease Daughter Kidney. Cancer Mother Female Hypertension Mother Long time Breast Cancer Neg Hx Relation Status Comments Daughter Mother Social History Tobacco Use Types Packs/Day Years Used Date Smoking Tobacco: Never Smokeless Tobacco: Never Tobacco Cessation:Counseling Given: No Comments:na Alcohol Use Standard Drinks/Week Comments Never 0 (1 standard drink = 0.6 oz pur e alcohol) PHQ-2 Answer Date Recorded Patient Health Questionnaire-2 Score 0 08/07/2024 Comments Unknown Sex and Gender Information Value Date Recorded Sex Assigned at Female 07/25/2024 9:54 AM ESTABLISHMENT GUIDE Legal Sex Female 6:20 PM CDT Gender Identity Female 08/07/2024 9:11 AM ESTABLISHMENT GUIDE Sexual Orientation Straight 08/07/2024 9: 11 AM ESTABLISHMENT GUIDE Last Filed Vital Signs Vital Sign Reading Time Taken Comments Blood Pressure 134/78 10/02/2024 8:05 AM CDT Pulse 82 10/02/2024 8:05 AM CDT Temperature 36.2 C (97.2 F) 10/02/2024 8:05 AM CDT Respiratory Rate 18 07/11/2024 3:33 PM ESTABLISHMENT GUIDE Oxygen Saturation 96% 10/02/2024 8:05 AM CDT Inhaled Oxygen Concentration - - Weight 86.1 kg (189 lb 12.8 oz) 10/02/2024 8:05 AM CDT Height 167.6 cm (5' 6 ) 10/02/2024 8:05 AM CDT Body Mass Index 30.63 10/02/2024 8:05 AM CDT Plan of Treatment Health Maintenance Due Date Last Done Comments Colorectal Cancer Screening Colonoscopy (10 Years) 1950 Hepatitis C 01/28/1970 DTaP, Tdap and Td Vaccines ( 1 - Tdap) 01/28/1971 Annual Medicare Wellness Visit 01/28/2017 Dexa Scan (General) 01/28/2017 Pneumococcal Vaccine: 65+ Years (2 of 2 - PPSV23 or PCV20) 04/03/2020 04/03/2019 Mammogram Screening 03/22/2023 03/22/2021 COVID-19 Vaccine (3 - 2023-2 5 season) 2024 09/19/2020, 08/29/2020 RSV Immunization or 60+ Years (1 - 1-dose 75+ series) 01/28/2027 Zoster Vaccines Completed 06/17/2020, 04/07/2020 PHQ-2 (Physician [place]) Completed 08/07/2024 Meningococcal B Vaccine Aged Out No l onger eligible based on patient's age to complete this topic Meningococcal Vaccine Aged Out No will jorge eligible based on patient's age to complete this topic RSV Immunizations Under 20 Months Aged Out No longer eligible b ased on patient's age to complete this topic Procedures Procedure Name Priority Date/Time Associated Diagnosis Comments XR KNEE LT 3V Routine 10/02/2024 8:17 AM CDT Closed fracture of lateral portion of left tibial plateau with routine healing, subsequent encounter XR KNEE LT 3V Routine 09/04/2024 8:56 AM ESTABLISHMENT GUIDE Closed fracture of lateral portion of left tibial plateau, initial encounter XR KNEE LT 3V Routine 08/07/2024 9:10 AM ESTABLISHMENT GUIDE Closed fracture of lateral portion of left tibial plateau with routine healing, subsequent encounter XR KNEE LT 3V Routine 07/25/2024 10:14 AM ESTABLISHMENT GUIDE Closed fracture of lateral portion of left tibial plateau, initial encounter XR KNEE LT MIN 4V Routine 07/11/2024 3:1 0 PM ESTABLISHMENT GUIDE Closed fracture of left tibial plateau MG SCREENING W ROBB SUREKHA DIGI Routine 03/22/2021 2:44 PM CDT Visit for screening mammogram from Last 3 Months or Most Recently Relevant to Health Maintenance Results * XR KNEE LT 3V (10/02/2024 8:17 AM CDT) Only the most recent of4 resultswithin the time period is included. Anatomical Region Laterality Modality Knee Radiographic Mary Carmen ging 10/02/2024 9:38 AM CDT Impressions 10/02/2024 9:39 AM CDT IMPRESSION: Stable lateral tibial plateau fracture Ordered By: MACIEL MILLARD Interpreted By: Sanchez Pavon MD, 10/02/2024 9:38 AM Narrative 10/02/2024 9:39 AM CDT 3 VIEWS OF THE LEFT KNEE Clinical History: Tibial plateau fracture Comparison: September 04, 2024 3 views of the left knee demonstrate a stable overall appearance. Mild deformation of the lateral tibial plateau with subchondral sclerosis is unchanged from previous. Mild degenerative changes throughout the joint remains stable. The soft tissues are unchanged Procedure Note Sanchez Pavon MD - 10/02/2024 3 VIEWS OF THE LEFT KNEE Clinical History: Tibial plateau fracture Comparison: September 04, 2024 3 views of the left knee demonstrate a stable overall appearance. Milddeformation of the lateral tibial plateau with subchondral sclerosis isunchanged from previous. Mild degenerative changes throughout the jointremains stable. The soft tissues are unchanged IMPRESSION: Stable lateral tibial plateau fracture Ordered By: MACIEL MILLARD Interpreted By: Sanchez Pavon MD, 10/02/2024 9:38 AM Maciel Millard DARKLIGHT INSPECTOR GENERAL IMAGING Final Re sult * XR KNEE LT MIN 4V (07/11/2024 3:10 PM ESTABLISHMENT GUIDE) Anatomical Region Laterality Modality Knee Radiographic Mary Carmen ging 07/11/2024 3:17 PM ESTABLISHMENT GUIDE Impressions 07/11/2024 3:18 PM ESTABLISHMENT GUIDE IMPRESSION:===== 1. Positive lateral tibial plateau fracture, unchanged from prior exam. Referred By: Interpreted By: Venancio Miramontes MD, 07/11/2024 3:17 PM Narrative 07/11/2024 3:18 PM ESTABLISHMENT GUIDE [facility] [address] [place] [address] Examination: Left knee , 4 views Exam Date/Time: 07/11/2024 3:00 PM Reason For Exam: left tibial plateau fracture Comparison: 06/21/2024 Technique: four views of the left knee were obtained. Findings: Depressed lateral tibial plateau fracture is seen, unchanged in appearance prior study. Spurring from the femur, tibia, and patella is also noted. Joint effusion is seen. ===== Procedure Note Venancio Miramontes MD - 07/11/2024 [facility] [address] [place] [address] Examination: Left knee , 4 views Exam Date/Time: 07/11/2024 3:00 PM Reason For Exam: left tibial plateau fracture Comparison: 06/21/2024 Technique: four views of the left knee were obtained. Findings: Depressed lateral tibial plateau fracture is seen, unchanged inappearance prior study. Spurring from the femur, tibia, and patella is also noted. Joint effusionis seen. ===== IMPRESSION:===== 1. Positive lateral tibial plateau fracture, unchanged from prior exam. Referred By: Interpreted By: Venancio Miramontes MD, 07/11/2024 3:17 PM us Mcaiel Millard [employer] INS[employer] GENER[facility] Final Re sult * MG SCREENING W ROBB SUREKHA TIAI (03/22/2021 2:44 PM CDT) Anatomical Region Laterality Modality Breast Bilateral Mammography 03/22/2021 9:02 PM CDT Impressions 03/22/2021 9:05 PM CDT IMPRESSION: 1. No mammographic evidence of malignancy. 2. BI-RADS Category 2 - benign findings. Annual screening mammography recommended. MQSA BI-RADS Categories: Category 0 - needs additional imaging evaluation. Category 1 - negative. Category 2 - benign findings. Category 3 - probably benign findings, but short interval follow-up is recommended. Category 4 - suspicious abnormality and biopsy should be considered though the lesion may well be benign. Category 5 - highly suggestive of malignancy and appropriate action should be taken. A) A negative report should not delay a biopsy if a dominant or clinically suspicious mass is present. B) Adenosis and dense breasts may obscure an underlying neoplasm. C) Study interpreted with computer aided detection. Referred By: GREYSON MARTIN Interpreted By: Mary Roger, 03/22/2021 9:02 PM Narrative 03/22/2021 9:05 PM CDT IMAGING STUDIES: Bilateral screening mammograms with computer-aided detection with 2-D and 3-D imaging. Tomosynthesis. DATE: 03/22/2021 2:16 PM HISTORY: scr . No current complaints. COMPARISON: 12/05/2016. 05/02/2018. TISSUE TYPE: The breast tissue is almost entirely fatty. FINDINGS: 1. Bilateral screening mammograms with computer detection with 2-D and 3-D imaging. Tomosynthesis. Fatty replaced fibroglandular tissue pattern is present. Benign nodularity. Benign calcifications. 2. No malignant microcalfcifications, new dominant masses, or architectural distortion. Stable asymmetric architectural prominence within the superior right retroareolar region seen on the MLO view. 3. No skin thickening or nipple retraction. Axillary regions are within normal limits. Greyson Martin MD MAMMO Final Result from Last 3 Months or Most Recently Relevant to Health Maintenance Insurance MEDICARE [facility] Care Teams Retirement Consultant Relationship Specialty Start Date End Date Greyson Martin MD PCP - General INTERNAL MEDICINE 03/15/21
[2024-10-07 16:39] LABS: Alanine Aminotransferase 28 U/L (6-35); Albumin Level 4.7 g/dL (3.5-5.1); Alkaline Phosphatase 47 U/L (38-126); Anion Gap 11 mmol/L (4-12); Aspartate Amino Transferase 56 U/L (14-36); Bilirubin,Total 0.4 mg/dL (0.2-1.3); Blood Urea Nitrogen 18 mg/dL (7-17); Calcium 9.7 mg/dL (8.4-10.2); Carbon Dioxide 27 mmol/L (22-30); Chloride 103 mmol/L (98-107); Estimated Glomerular Filt Rate > 60; Glucose 97 mg/dL (65-110); Potassium 4.2 mmol/L (3.4-5.0); Sodium 141 mmol/L (137-145)
== END 2024-10-07 13:51 | disposition home or self-care (01) ==
LOC: ANHLAB 13:51
PROVIDERS: PCP Physician Assistant Medical; Visit Provider Internal Medicine Hematology & Oncology
DX: D47.2 Monoclonal gammopathy (principal)
CPT/HCPCS: 36415; 80047; 80053; 85025

== ENCOUNTER 2025-01-22 08:28 | Outpatient (CLI) | payer MEDICARE, SELFPAY ==
--- NOTE | ~2025-01-22 | DEXA_ITS ---
Bone Density Report Name: DANIAL FLOREZ Age: 74 Sex: Female Ethnicity: White Date of : 1950 Indication: osteopenia; Referring Provider: CORETTA BROWNING Study: Bone densitometry was performed. Exam Date: January 22, 2025 Accession number: [id number] Bone Density: Region BMD T-score Z-score Classification AP Spine(L1-L4) 0.931 -1.1 1.2 Osteopenia Femoral Neck (Left) 0.588 -2.3 -0.4 Osteopenia Total Hip (Left) 0.774 -1.4 0.3 Osteopenia Femoral Neck (Right) 0.600 -2.2 -0.3 Osteopenia Total Hip (Right) 0.778 -1.3 0.3 Osteopenia Total Hip Mean 0.776 -1.4 0.3 Osteopenia World Health Organization criteria for BMD impression classify patients as: Normal (T-score at or above -1.0), Osteopenia (T-score between -1.0 and -2.5), or Osteoporosis (T-score at or below -2.5). 10-year Fracture Risk(1): Major Osteoporotic Fracture 14% Hip Fracture 3.4% Reported Risk Factors: [place] (), Neck BMD=0.588, BMI=29.2 (1) FRAX(R) Version 3.08. Fracture probability calculated for an untreated patient. Fracture probability may be lower if the patient has received treatment. Previous Exams: Region Exam Age BMD T-score BMD Change BMD Change Date g/cm2 vs Baseline vs Previous AP Spine (L1-L4) 01/22/2025 74 0.931 -1.1 0.062 (7.1%)* 0.062 (7.1%)* 11/02/2022 72 0.869 -1.6 Total Hip(Left) 01/22/2025 74 0.774 -1.4 0.058 (8.1%)* 0.058 (8.1%)* 11/02/2022 72 0.717 -1.8 Total Hip(Right) 01/22/2025 74 0.778 -1.3 0.043 (5.8%)* 0.043 (5.8%)* 11/02/2022 72 0.735 -1.7 *Denotes significance at 95% confidence level, LSC for AP Spine = 0.022 g/cm2, LSC for Total Hip = 0.027 g/cm2 Clinical Information Provided by Patient: Has used the following medications: Calcium Patient maximum height was 66 Menopause Age: 52 No regular weight bearing exercise Drinks caffeinated beverages Onset of menses at age 15 Number of children 2 Impression: The patient has low bone mass, based on the Left Femoral Neck T-score. The patient has an estimated ten-year risk of hip fracture of 3.4% and an estimated ten-year risk of major fracture of 14%, based on the WHO FRAX algorithm. No significant bone loss was observed. Discussion: BONE DENSITY IS LOW AT ONE OR MORE SKELETAL SITES. THE PATIENT'S BMD AND CLINICAL RISK FACTORS CONTRIBUTE TO THIS PATIENT'S INCREASED RISK OF FRACTURE. This patient's lowest T-score is low at one or more skeletal sites. It meets the World Health Organization's (WHO) criteria for ?low bone mass? (T-score between -1.0 and -2.5). The patient's 10-year risk of hip fracture as calculated by FRAX exceeds the threshold where pharmacological therapy is recommended by the National Osteoporosis Foundation (NOF). However, all treatment decisions require clinical judgment and consideration of individual patient factors, including patient preferences, comorbidities, previous drug use, risk factors not captured in the FRAX model (e.g., frailty, falls, vitamin D deficiency, increased bone turnover, interval significant decline in bone density) and possible under or overestimation of fracture risk by FRAX. The patient should follow a healthful lifestyle (good nutrition with adequate calcium and vitamin D, and appropriate weight-bearing exercise). Follow-Up: Consider a repeat BMD and Vertebral Fracture Assessment (VFA) exam in 2 years or sooner if medically necessary, to reassess this patient's status. Reported by: KAREN on 01/22/2025 9:01:00 AM. Reviewed, dictated and finalized at location A.
--- OUTSIDE RECORDS SUMMARY | 2025-01-22 08:33 | XMS_ITS | Clinical Summary ---
Author Organization [facility] Gwendolyn Blancas Address [address] [place] [address] Care Team Providers Care Electric Wheelchair Repairer Name Role Phone Filemon Cloud MD Primary Care Provider [phone] Allergies No known active allergies Medications semaglutide [...] Encounters Date Type Department Care Team Description 01/15/2025 External Device Data STL ABSTRACTION Provider, Abstract 01/15/2025 External Device Data STL ABSTRACTION Provider, Abstract 12/17/2024 External Device Data STL ABSTRACTION Provider, Abstract 11/21/2024 External Device Data STL ABSTRACTION Provider, Abstract 11/20/2024 External Device Data STL ABSTRACTION Provider, Abstract 11/19/2024 External Device Data STL ABSTRACTION Provider, Abstract [...] 2:22 PM CDT Height 167.6 cm (5' 6) 11/02/2022 9:28 AM CDT Body Mass Index 30.15 11/02/2022 9:28 AM CDT Plan of Treatment Upcoming Encounters Date Type Department Care Team (Late st Contact Info) Description 10/07/2025 10:15 AM CDT Office Visit [facility] Oncology and Hematology - [place] [address] [place] [address] Keenan Douglass MD [address] [facility] [address] [place] [phone] Health Maintenance Due Date Last Done Comments DTAP/TDAP/TD VACCINES (1 - Tdap) 01/28/1971 COLORECTAL SCREENING 01/28/1997 Colorectal Cancer Screening [...] 03/22/2021, Additional history exists INFLUENZA VACCINE (#1) 2025 Insurance MEDICARE PART A AND B [employer] SUPP Care Teams Electric Wheelchair Repairer Relationship Specialty Start Date End Date Filemon Cloud MD [address] [place] [phone] PCP - General Family Practice 11/02/22
== END 2025-01-22 08:29 | disposition home or self-care (01) ==
LOC: ANHIMG 08:31
PROVIDERS: PCP Physician Assistant Medical; Visit Provider Internal Medicine
DX: M81.0 Age-related osteoporosis without current pathological fracture (principal); M85.89 Other specified disorders of bone density and structure, multiple sites
CPT/HCPCS: 77080

== ENCOUNTER 2025-03-13 08:16 | Outpatient (CLI) | payer MEDICARE, SELFPAY ==
--- NOTE | ~2025-03-13 | MM_ITS ---
EXAMINATION: MM screening harman BI w dima HISTORY: Screening TECHNIQUE: Craniocaudal and mediolateral oblique 3-D tomosynthesis images were obtained and synthetic 2-D images were generated. CAD analysis was submitted and interpreted. COMPARISON: Comparison to multiple prior studies sequentially, with oldest reviewed study dated , 06/29/2022. BREAST PARENCHYMAL COMPOSITION: There are scattered areas of fibroglandular density. FINDINGS: There is no evidence of suspicious mass, calcification, or architectural distortion to suggest malignancy in either breast. IMPRESSION: 1. No mammographic evidence of malignancy. 2. Recommend routine screening mammography in one year. BI-RADS Category 1: Negative Reviewed, dictated and finalized at location B.
--- OUTSIDE RECORDS SUMMARY | 2025-03-13 08:42 | XMS_ITS | Encounter Summary ---
Author Organization [facility] Address [address] [place] [address] Care Team Providers Care Casing In Line Setter Name Role Phone Filemon Cloud MD Primary Care Provider [phone] Encounter Details Date Type Department Care Team (Late Contact Info) Description 03/11/2025 External Device Data STL ABSTRACTION Provider, Abstract NO ADDRESS ON FILE Social History Tobacco Use Types Packs/Day Years Used Date Smoking Tobacco: Never Smokeless Tobacco: Never Alcohol Use Standard Drinks/Week Comments Never 0 (1 standard drink = 0.6 oz pur e alcohol) Comments Unknown Sex and Gender Information Value Date Recorded Sex Assigned at Not on file Legal Sex Female 2:04 PM CDT Gender Identity Not on file Sexual Orientation Not on file documented as of this encounter Plan of Treatment Upcoming Encounters Date Type Department Care Team (Late Contact Info) Description 10/07/2025 10:15 AM CDT Office Visit [facility] Oncology and Hematology - [place] [address] [place] [address] [facility] [address] [place] [address] Keenan Douglass MD [address] [facility] [address] [place] [address] documented as of this encounter Visit Diagnoses Not on filedocumented in this encounter Care Teams Casing In Line Setter Relationship Specialty Start Date End Date Filemon Cloud MD [facility] [place] [address] PCP - General Family Practice 11/02/22 documented as of this encounter
--- OUTSIDE RECORDS SUMMARY | 2025-03-13 08:42 | XMS_ITS | Clinical Summary ---
Author Organization [facility] Gwendolyn Blancas Address [address] [place] [address] Care Team Providers Care Sweatband Shaper Name Role Phone Filemon Cloud MD Primary Care Provider [phone] Allergies No known active allergies Medications semaglutide [...] Encounters Date Type Department Care Team Description 03/11/2025 External Device Data STL ABSTRACTION [...] 10/07/2025 10:15 AM CDT Office Visit [facility] Oncology and Hematology - [place] [address] [facility] [address] [place] [address] Keenan Douglass MD [address] [facility] [address] [place] [address] Health Maintenance Due Date Last [...] 2025 Insurance MEDICARE PART A AND B [facility] SUPP Care Teams Sweatband Shaper Relationship Specialty Start Date End Date Filemon Cloud MD [address] [place] [phone] PCP - General Family Practice 11/02/22
== END 2025-03-13 08:17 | disposition home or self-care (01) ==
LOC: ANHFOHIMG 08:18
PROVIDERS: PCP Physician Assistant Medical; Visit Provider Internal Medicine
DX: Z12.31 Encounter for screening mammogram for malignant neoplasm of breast (principal)
CPT/HCPCS: 77063; 77067